=== PATIENT | male | born 1945 | race Caucasian/White ===

== ENCOUNTER 2019-01-13 10:29 | Emergency (ER) | payer OTHER, MEDICARE, SELFPAY ==
[2019-01-13 10:30] VITALS: BP 141/75; PULSE 65; RESP 17; TEMP 37.3; O2SAT 93
[2019-01-13 10:35] VITALS: BP 141/75; PULSE 63; RESP 16; TEMP 37.3; O2SAT 95; BMI 31.7
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
[2019-01-13 11:21] LABS: Absolute Lymphocyte Count 1.04 X10^3/ul (0.83-4.51); Absolute Neutrophil Count 5.3 X10^3/uL (2.0-7.7); Basophil# 0.03 X10^3/uL; Basophil% 0.4 % (0-1); Eosinophil# 0.05 X10^3/uL; Eosinophils% 0.7 % (0-5); Hematocrit 37.6 % (40-54); Hemoglobin 12.3 g/dl (13.0-16.5); Lymphocyte # 1.04 X10^3/ul (4.0); Lymphocyte % 14.5 % (19-41); Mean Corp Hgb Conc 32.7 g/gl (32-36); Mean Corpuscular Hgb 27.8 pg (27.0-32.0); Mean Corpuscular Volume 85.1 fL (80-94); Mean Platelet Vol. 9.5 fl (6.2-12.0); Monocyte# 0.74 X10^3/uL; Monocyte% 10.3 % (0-10); Neutrophil # 5.28 X10^3/uL (2.7-7.7); Platelet Count 305 K/mm3 (150-450); RBC Distribution Width CV 16.6 % (11.6-14.6); RBC Distribution Width SD 51.8 fl (35.1-43.9); Red Blood Count 4.42 M/mm3 (4.6-6.2); White Blood Count 7.2 K/mm3 (4.4-11.0)
[2019-01-13 11:22] LABS: POSITIVE COUNT NO; POSITIVE DIFFERENTIAL NO; POSITIVE MORPHOLOGY NO
[2019-01-13] MEDS: 0.9% Normal Saline 1,000 ML 150 ML IV (11:24)
[2019-01-13 11:34] LABS: Anion Gap 7 (5-15); BUN 17 mg/dL (7-18); BUN/Creat Ratio 18.4 RATIO (10-20); Calcium,Total 8.6 mg/dL (8.5-10.1); Chloride 103 mmol/L (98-107); Creatinine, Serum 0.92 mg/dL (0.70-1.30); EST Glomerular Filtration Rate 85 mL/min (>60); Est Glom Filt Rate - Afr Amer 102 mL/min (>60); Estimated Creatinine Clearance 70.53 ml/min; Glucose 110 mg/dL (74-106); Potassium 4.1 mmol/L (3.5-5.1); Sodium Level 137 mmol/L (136-145)
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
[2019-01-13 12:02] LABS: BNP,B-Type NATRIURETIC PEPTIDE 189.1 pg/mL (0-100)
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
[2019-01-13 13:17] VITALS: BP 142/98; PULSE 59; PULSE 60; RESP 16; RESP 18; O2SAT 93
== END 2019-01-13 13:36 | disposition home or self-care (01) ==
PROVIDERS: Emergency Provider Emergency Medicine
DX: S29.9XXA Unspecified injury of thorax, initial encounter (principal); R06.00 Dyspnea, unspecified; V43.52XA Car driver injured in collision with other type car in traffic accident, initial encounter; Y93.9 Activity, unspecified; Y92.9 Unspecified place or not applicable; Z95.2 Presence of prosthetic heart valve; Z79.82 Long term (current) use of aspirin
CPT/HCPCS: 36415; 71045; 71275; 80048; 83880; 84484; 85025; 93005; 96360; 96361; 99285; J7030; Q9967; A4216; J2405